=== PATIENT | male | born 1990 | race Caucasian/White ===

== ENCOUNTER 2018-09-09 11:41 | Emergency (ER) | payer SELFPAY ==
[~2018-09-09] VITALS: Ht 182.9 cm; Wt 79.5 kg
[2018-09-09] MEDS ORDERED: BENZOCAINE/MENTHOL LOZENGE PO ONE (13:00)
[2018-09-09] MEDS ORDERED: KETOROLAC TROMETHAMINE 30 MG/ML VIAL IM ONE (13:00)
[2018-09-09 14:16] VITALS: BP 115/71
== END 2018-09-09 14:23 | disposition home or self-care (01) ==
LOC: EMS 11:42
DX: J02.9 Acute pharyngitis, unspecified (principal); M79.10 Myalgia, unspecified site; H92.01 Otalgia, right ear
CPT/HCPCS: 96372; 99283; J1885